=== PATIENT | male | born 1970 | race Caucasian/White ===

== ENCOUNTER 2016-08-06 13:20 | Emergency (ER) | payer OTHER ==
--- NOTE | 2016-08-06 13:28 | PDOC ---
[id number] 4d LEFT LOWER BACK PAIN Time Seen by Provider: 08/06/16 13:27 History Source: Patient Exam Limitations: No Limitations - History of Present Illness Initial Comments: 46 yo M no significant PMH presents with L low back/buttock pain. Pain started after he slept in an uncomfortable position (his kids were sleeping on him, was difficult to move). He tried naproxen without any significant relief. He was seen in an urgent care, given medrol dose pack and flexeril without relief. Denies any direct trauma, dysuria, hematuria. No weakness, numbness. He had similar symptoms once in the past, was treated here in the ED with toradol with significant relief. Past History - Past Medical History Allergies/Adverse Reactions: Allergies Allergy/AdvReac Type Severity Reaction Status Date / Time No Known Allergies Allergy Verified 08/06/16 13:24 Home Medications: Ambulatory Orders Cyclobenzaprine HCl [Flexeril 10 mg] 5 mg PO BID PRN 08/06/16 Ibuprofen [Motrin -] 600 mg PO TID PRN #21 tablet 08/06/16 Oxycodone HCl/Acetaminophen [Percocet 5-325 mg Tablet] 1 tab PO Q6H PRN #12 tablet MDD 4 tabs 08/06/16 Prednisone [Deltasone -] 5 mg PO ASDIR 08/06/16 - Family Disease History Family Disease History: Other: Father (alive and well) - Psycho/Social/Smoking Cessation Hx Anxiety: No Suicidal Ideation: No Smoking History: Current every day smoker Number of Cigarettes Smoked Daily: 1 'Breaking Loose' booklet given: 01/18/15 Hx Alcohol Use: Yes (former alcohol abuser) Drug/Substance Use Hx: Yes (former cocaine and opiate abuser) Substance Use Type: Alcohol (former), Cocaine (former), Opiates (former) Review of Systems - Review of Systems Able to Perform ROS?: Yes Comments:: GENERAL/CONSTITUTIONAL: No fever or chills. No weakness. HEAD, EYES, EARS, NOSE AND THROAT: No change in vision. No ear pain or discharge. No sore throat. CARDIOVASCULAR: No chest pain or shortness of breath. RESPIRATORY: No cough, wheezing, or hemoptysis. GASTROINTESTINAL: No nausea, vomiting, diarrhea or constipation. GENITOURINARY: No dysuria, frequency, or change in urination. MUSCULOSKELETAL: No joint or muscle swelling or pain. No neck pain. +L low back/ buttock pain. SKIN: No rash NEUROLOGIC: No headache, vertigo, loss of consciousness, or change in strength/ sensation. ENDOCRINE: No increased thirst. No abnormal weight change. HEMATOLOGIC/LYMPHATIC: No anemia, easy bleeding, or history of blood clots. ALLERGIC/IMMUNOLOGIC: No hives or skin allergy. *Physical Exam - Physical Exam Comments: GENERAL: Awake, alert, and fully oriented, in no acute distress HEAD: No signs of trauma EYES: PERRLA, EOMI, sclera anicteric, conjunctiva clear ENT: Auricles normal inspection, hearing grossly normal, nares patent, oropharynx clear without exudates. Moist mucosa EXTREMITIES: Normal range of motion, no edema. No clubbing or cyanosis. No cords, erythema, or tenderness NEUROLOGICAL: Cranial nerves II through XII grossly intact. Normal speech. Strength and sensation intact. +Antalgic gait. SKIN: Warm, Dry, normal turgor, no rashes or lesions noted. SPINE: No midline tenderness. No step-offs. Medical Decision Making - Medical Decision Making Patient had incomplete relief with toradol and robaxin. After a discussion at the bedside (in light of prior history of opioid use), gave him percocet, as he was still having difficulty ambulating. I checked i-STOP, no red flags. Will give prescription for 3 day supply. *DC/Admit/Observation/Transfer Diagnosis at time of Disposition: Lumbosacral strain Qualifiers: Encounter type: initial encounter Qualified Code(s): S39.012A - Strain of muscle, fascia and tendon of lower back, initial encounter - Discharge Dispostion Disposition: HOME Condition at time of disposition: Stable Admit: No - Prescriptions Prescriptions: Ibuprofen [Motrin -] 600 mg PO TID PRN #21 tablet PRN Reason: Pain Oxycodone HCl/Acetaminophen [Percocet 5-325 mg Tablet] 1 tab PO Q6H PRN #12 tablet MDD 4 tabs PRN Reason: Severe Pain - Patient Instructions Printed Discharge Instructions: DI for Back Strain or Sprain - Post Discharge Activity Work/School Note: Back to Work
[2016-08-06 13:32] VITALS: BP 150/76; PULSE 90; TEMP 98.2; BMI 30.4
[2016-08-06] MEDS ORDERED: KETOROLAC TROMETHAMINE 60 MG/2 ML VIAL IM ONE (13:46)
[2016-08-06] MEDS ORDERED: KETOROLAC TROMETHAMINE 60 MG/2 ML VIAL ONE (13:56)
[2016-08-06] MEDS ORDERED: METHOCARBAMOL 500 MG TABLET PO ONE (14:32)
[2016-08-06] MEDS ORDERED: OXYCODONE/APAP 5/325MG COMBO TABLET PO ONE (15:12)
[2016-08-06] MEDS ORDERED: OXYCODONE/APAP 5/325MG COMBO TABLET ONE (15:18)
== END 2016-08-06 16:12 | disposition home or self-care (01) ==
LOC: FER 13:20
PROC: 3E0233Z Introduction of Anti-inflammatory into Muscle, Percutaneous Approach (ICD-10-PCS; principal; 2016-08-06)
DX: S39.012A Strain of muscle, fascia and tendon of lower back, initial encounter (principal); X58.XXXA Exposure to other specified factors, initial encounter; Y93.89 Activity, other specified; Y92.89 Other specified places as the place of occurrence of the external cause
CPT/HCPCS: 99282-25